=== PATIENT | female | born 1985 | race Caucasian/White ===

== ENCOUNTER 2023-08-30 10:05 | Emergency (ER) | payer MEDICAID ==
[~2023-08-30] VITALS: Ht 160 cm; Wt 102.0 kg
[2023-08-30 10:12] VITALS: TEMP 98.8
[2023-08-30] MEDS: PREDNISONE 20MG TABLET PO STA (10:38)
[2023-08-30] MEDS ORDERED: DIPHENHYDRAMINE 50MG CAPSULE PO ONE (10:45)
[2023-08-30 11:42] VITALS: BP 122/75
[2023-08-30] MEDS: DIPHENHYDRAMINE 25MG CAPSULE PO NR (11:42)
[2023-08-30] MEDS: IBUPROFEN 400MG TABLET PO ONE (11:42)
[2023-08-30 11:56] VITALS: PULSE 75; RESP 18; O2SAT 99
[2023-08-30] MEDS: ALBUTEROL (0.083%) 2.5MG/3ML NEB HHN STA (11:56)
[2023-08-30] MEDS ORDERED: DIPH25CA83 MT (12:31)
[2023-08-30] MEDS ORDERED: ALBU90AE INH (12:31)
[2023-08-30] MEDS ORDERED: P20 MT (12:31)
== END 2023-08-30 13:04 | disposition home or self-care (01) ==
LOC: ER 10:05
DX: T78.40XA Allergy, unspecified, initial encounter (principal); I10 Essential (primary) hypertension; N80.9 Endometriosis, unspecified; Z98.890 Other specified postprocedural states; X58.XXXA Exposure to other specified factors, initial encounter
CPT/HCPCS: 94640; 99284; Q0163; J7512; Z7610

== ENCOUNTER 2023-10-15 16:44 | Emergency (ER) | payer MEDICAID, OTHER ==
[~2023-10-15] VITALS: Ht 165.1 cm; Wt 95.0 kg
[~2023-10-15 16:44] MED LIST: ALBU90AE INH; DIPH25CA83 MT; P20 MT
[2023-10-15 16:48] VITALS: TEMP 98.2; O2SAT 97
[2023-10-15 17:23] LABS: BASOPHILS % 0.6 % (0.0-2.0); EOSINOPHILS % 1.4 % (0.0-5.0); HEMATOCRIT. 33.9 % (36.0-48.0); HEMOGLOBIN. 11.8 g/dL (12.0-16.0); LYMPHOCYTES % 28.7 % (20.0-50.0); MEAN CORPUSCULAR HEMOGLOBIN 31.8 pg (28.0-32.0); MEAN CORPUSCULAR HGB CONC 34.9 g/dL (31.0-37.0); MEAN CORPUSCULAR VOLUME 91.1 fL (81.0-99.0); MEAN PLATELET VOLUME 7.9 fl (7.4-10.4); MONOCYTES % 7.6 % (2.0-8.0); NEUTROPHILS % 61.7 % (40.0-76.0); PLATELET 307 x1000/uL (130-400); RED BLOOD CELL COUNT 3.72 mill/uL (4.2-5.4); RED CELL DISTRIBUTION WIDTH 13.6 % (11.6-14.6); WHITE BLOOD COUNT 8.9 x1000/uL (4.5-11.0)
[2023-10-15 17:29] LABS: CHLORIDE 107 mEq/L (98-107); POTASSIUM 3.8 mEq/L (3.5-5.1); SODIUM 137 mEq/L (136-145)
[2023-10-15 17:30] LABS: CARBON DIOXIDE 24 mEq/L (21-32)
[2023-10-15 17:31] LABS: CALCIUM 9.1 mg/dL (8.7-10.4)
[2023-10-15 17:36] LABS: CREATININE 0.8 mg/dL (0.6-1.0); GLUCOSE 97 mg/dL (70-105); UREA NITROGEN BLOOD 13 mg/dL (9-23)
[2023-10-15 17:38] LABS: HCG SCREEN NEGATIVE
[2023-10-15 17:40] LABS: TROPONIN I HIGH SENSITIVITY < 4 ng/L (3.0-34)
[2023-10-15 17:40] LABS: CLARITY URINE CLEAR (CLEAR); COLOR URINE YELLOW (YELLOW); GLUCOSE URINE NEGATIVE (NEGATIVE); KETONES URINE NEGATIVE (NEGATIVE); LEUKOCYTE ESTERASE URINE NEGATIVE (NEGATIVE); NITRITE URINE NEGATIVE (NEGATIVE); OCCULT BLOOD URINE TRACE (NEGATIVE); PROTEIN URINE NEGATIVE (NEGATIVE); SPECIFIC GRAVITY URINE 1.022 (1.005-1.030); UROBILINOGEN URINE 0.2 E.U./dL (0.2-1.0)
[2023-10-15 17:59] LABS: BACTERIA URINE 1+
[2023-10-15 18:00] LABS: RBC URINE 0-2 /hpf (0-2); SQUAMOUS EPITHELIAL CELL URINE 1+ /lpf (RARE/1+); WBC URINE 0-2 /hpf (0-2)
[2023-10-15] MEDS ORDERED: BENZ200C52 MT (19:12)
[2023-10-15] MEDS ORDERED: IBUP-2029 MT (19:12)
[2023-10-15 19:20] VITALS: BP 129/87; PULSE 72; RESP 16
== END 2023-10-15 19:24 | disposition home or self-care (01) ==
LOC: ER 16:44
DX: R05.9 Cough, unspecified (principal); R07.89 Other chest pain; N83.201 Unspecified ovarian cyst, right side; I10 Essential (primary) hypertension; N80.9 Endometriosis, unspecified
CPT/HCPCS: 36415; 71045; 76830; 76856; 80048; 81003; 81025; 84484; 84703; 85025; 99284

== ENCOUNTER 2024-02-14 16:49 | Emergency (ER) | payer BC, MEDICAID ==
[~2024-02-14] VITALS: Ht 167.6 cm; Wt 100.0 kg
[~2024-02-14 16:49] MED LIST changes: +BENZ200C52 MT; +IBUP-2029 MT
[2024-02-14 16:54] VITALS: O2SAT 98
[2024-02-14] MEDS ORDERED: CETI1TAB MT (19:25)
[2024-02-14] MEDS ORDERED: AMOX1TAB16 MT (19:26)
[2024-02-14 19:53] VITALS: BP 159/98; PULSE 88; RESP 20; TEMP 36.61404; O2SAT 100
== END 2024-02-14 19:55 | disposition home or self-care (01) ==
LOC: ER 16:49
DX: J01.90 Acute sinusitis, unspecified (principal); I10 Essential (primary) hypertension; Z79.899 Other long term (current) drug therapy
CPT/HCPCS: 71045; 99283

== ENCOUNTER 2024-03-22 09:58 | Emergency (ER) | payer BC ==
[~2024-03-22] VITALS: Ht 160 cm; Wt 100.0 kg
[~2024-03-22 09:58] MED LIST changes: +AMOX1TAB16 MT; +CETI1TAB MT
[2024-03-22 10:19] VITALS: O2SAT 99
[2024-03-22] MEDS ORDERED: BACITRACIN ZINC OINT UDPKT TOP NR (11:00)
[2024-03-22] MEDS ORDERED: IBUP-2029 PO (11:06)
[2024-03-22] MEDS ORDERED: FAMO-135 MT (11:06)
[2024-03-22] MEDS: KETOROLAC 30MG/ML VIAL IM ONE (11:13)
[2024-03-22 11:16] VITALS: BP 142/96; PULSE 95; RESP 20; TEMP 37.16964; O2SAT 98
== END 2024-03-22 11:18 | disposition home or self-care (01) ==
LOC: ER 09:58
DX: S20.312A Abrasion of left front wall of thorax, initial encounter (principal); S19.9XXA Unspecified injury of neck, initial encounter; Z98.890 Other specified postprocedural states; V49.40XA Driver injured in collision with unspecified motor vehicles in traffic accident, initial encounter; Y93.89 Activity, other specified; Y92.89 Other specified places as the place of occurrence of the external cause; Y99.8 Other external cause status
CPT/HCPCS: 99283; 96372; J1885

== ENCOUNTER → 2024-04-28 | Outpatient (CLI) | payer BC ==
[~2024-04-28] MED LIST changes: +FAMO-135 MT; +IBUP-2029 PO
== END | disposition home or self-care (01) ==
LOC: US 15:41
PROVIDERS: ATTEND Obstetrics & Gynecology Obstetrics
DX: D25.2 Subserosal leiomyoma of uterus (principal); N84.0 Polyp of corpus uteri; N80.03 Adenomyosis of the uterus; N83.291 Other ovarian cyst, right side
CPT/HCPCS: 76830; 76856